=== PATIENT | female | born 1950 | race Caucasian/White ===

== ENCOUNTER 2020-03-17 15:03 | Emergency (ER) | payer MEDICARE ==
[2020-03-17 16:46] LABS: ALT (SGPT) 14 U/L (8-55); AST (SGOT) 15 U/L (5-34); Albumin 3.6 g/dL (3.4-4.8); Alkaline Phosphatase 102 U/L (40-110); Anion Gap 15 mmol/L (10-20); BUN (Urea Nitrogen) 29 mg/dL (9.8-20.1); Bilirubin, Total 0.5 mg/dL (0.2-1.2); Calc. Creatinine Clearance 0 mL/min (70-130); Calcium 8.2 mg/dL (7.8-10.44); Carbon Dioxide 30 mmol/L (23-31); Chloride 101 mmol/L (98-107); Estimated GFR-MDRD 48; Glucose 118 mg/dL (83-110); Potassium 4.7 mmol/L (3.5-5.1); Protein, Total 6.6 g/dL (6.0-8.3); Sodium 141 mmol/L (136-145)
[2020-03-17 16:47] LABS: Band 7 % (5-11); Hemoglobin 8.5 g/dL (12.0-16.0); Lymphocytes 10 % (21-51); MDiff Complete? YES; Macrocytosis MODERATE=16-30 cells (100X) (0-5/hpf); Mean Corpuscular HGB CONC 28.2 g/dL (32.0-36.0); Mean Platelet Volume 7.8 fL (7.4-10.4); Monocytes 5 % (0-10); Neutrophil 75 % (42-75); Platelet Count 147 thou/uL (130-400); Platelet Morphology Comment Appears Adequate; Reactive Lymphocytes 3 % (0-10); Red Blood Cell (RBC) Count 2.84 mill/uL (4.20-5.40); White Blood Cell (WBC) Count 16.1 thou/uL (4.8-10.8)
[2020-03-17 17:01] LABS: Bilirubin Negative (Negative); Blood, Urine Negative (Negative); Glucose, Urine (Dipstick) Negative (Negative); Leukocyte Negative (Negative); Nitrite Positive (Negative); Protein, Urine (Dipstick) Negative (Neg-Trace); Urobilinogen 0.2 mg/dL (Less than 2)
[2020-03-17 17:11] LABS: Clarity Hazy (Clear)
[2020-03-17 17:12] LABS: Bacteria/HPF 4+ HPF (None Seen); RBC/HPF 0-3 HPF (0-3); Squamous Epithelial 0-3 HPF (0-3)
--- NOTE | 2020-03-17 17:41 | RAD ---
PORTABLE CHEST: 03/17/20 PROVIDED CLINICAL HISTORY: Confusion and cough. FINDINGS: Comparison 06/03/19. The heart appears enlarged, which may be at least partially on the basis of portable technique. There is elevation of the right hemidiaphragm with somewhat unusual lucency overlying the right upper quad rant, which could reflect colonic interposition that is incompletely characterized on the basis of th is study. Prominence of the pulmonary vasculature and pulmonary interstitium. Vascular calcification. IMPRESSION: 1. Hypoinflated exam. 2. Cardiomegaly and findings suggesting congestive failure. 3. Incompletely evaluated lucency overlying the right upper abdomen. Correlation with dedicated PA and lateral views of the chest is recommended. POS: ALEJANDRO
[2020-03-17] MEDS ORDERED: cefTRIAXone\\ROCEPHIN 1 GM VIAL ONE (18:36)
[2020-03-17] MEDS ORDERED: Calcium Carbonate 500 MG ChewTAB ONE ×2 (18:48)
[2020-03-17] MEDS ORDERED: Acetaminophen 500 MG TAB ONE (19:00)
== END 2020-03-17 20:15 | disposition critical access hospital (66) ==
LOC: NAV ERS 15:03
DX: N39.0 Urinary tract infection, site not specified (principal); R41.82 Altered mental status, unspecified; I11.0 Hypertensive heart disease with heart failure; I50.9 Heart failure, unspecified; E78.5 Hyperlipidemia, unspecified; E78.00 Pure hypercholesterolemia, unspecified; F32.9 Major depressive disorder, single episode, unspecified; Z87.891 Personal history of nicotine dependence; Z86.73 Personal history of transient ischemic attack (TIA), and cerebral infarction without residual deficits; Z79.899 Other long term (current) drug therapy
CPT/HCPCS: 51701; 71045; 80053; 81003; 81015; 83605; 85025; 87040; 96374; J0696